=== PATIENT | male | born 1960 | race Two or more races ===

== ENCOUNTER 2019-08-25 12:21 | Outpatient (CLI) | payer MEDICARE, MEDICAID ==
[2019-08-23 13:02] LABS: INR 1.1 (0.9-1.1)
--- NOTE | 2019-08-23 17:55 | Diagnostic Imaging Report ---
Indication: Cough Technique: 2 views of the chest Comparison: none Findings: Left hemidiaphragm is elevated. There is atelectasis and possibly some consolidation at the left lung base. There is questionably a small amount of pleural fluid on the left. Lungs and pleural spaces otherwise clear. There is cervical spine fusion hardware noted Impression: Left basilar atelectasis and possible consolidation. Cannot rule out small left pleural effusion as well
--- NOTE | 2019-08-25 12:29 | Diagnostic Imaging Report ---
Indication: Patient presents for thoracentesis Technique: Grayscale and duplex Doppler imaging of the chest performed preprocedure. Comparison: None Findings: There is no pleural fluid on either side. IMPRESSION: No pleural fluid bilaterally. Thoracentesis canceled.
== END 2019-08-25 14:21 | disposition home or self-care (01) ==
LOC: ULS 12:21
DX: J90 Pleural effusion, not elsewhere classified (principal); R05 Cough; Z98.1 Arthrodesis status; J98.11 Atelectasis
CPT/HCPCS: 36415; 71046; 76604; 85610; 85730